=== PATIENT | female | born 1985 | race African-American/Black ===

== ENCOUNTER 2017-01-04 00:16 | Emergency (ER) | payer MEDICAID ==
[2017-01-04 00:49] VITALS: BP 123/76
== END 2017-01-04 04:26 | disposition left against medical advice (07) ==
LOC: ED 00:16
DX: Z53.21 Procedure and treatment not carried out due to patient leaving prior to being seen by health care provider (principal)

== ENCOUNTER 2017-01-04 11:08 | Emergency (ER) | payer MEDICAID ==
[2017-01-04 13:47] LABS: UA SPECIFIC GRAVITY 1.015 (1.005-1.035); microscopic required? YES; urine erythrocyte TRACE (NEGATIVE)
[2017-01-04 14:15] LABS: CALCIUM 9.4 mg/dL (8.5-10.1); CARBON DIOXIDE 23.9 mmol/L (21-32); CHLORIDE SERUM 105 mmol/L (98-107); CREATININE SERUM 0.9 mg/dL (0.6-1.0); GFR1 > 60 mL/min; GLUCOSE SERUM 86 mg/dL (74-106); POTASSIUM SERUM 4.2 mmol/L (3.5-5.1); SODIUM SERUM 138 mmol/L (136-145)
[2017-01-04 14:23] LABS: BASOPHIL % 0.6 % (0-2); PLATELET COUNT 321 x10^3mcL (130-400)
[2017-01-04 14:27] LABS: RED CELL DISTRIBUTION WIDTH 16.6 % (11.5-14.5)
[2017-01-04 15:33] VITALS: BP 114/72
== END 2017-01-04 16:10 | disposition home or self-care (01) ==
LOC: ED 11:08
PROVIDERS: Emergency Medicine
DX: N39.0 Urinary tract infection, site not specified (principal); D64.9 Anemia, unspecified; Z88.5 Allergy status to narcotic agent
CPT/HCPCS: 36415; J1885

== ENCOUNTER 2017-01-06 15:28 | Emergency (ER) | payer MEDICAID ==
[2017-01-06 19:05] VITALS: BP 119/77
== END 2017-01-06 19:05 | disposition home or self-care (01) ==
LOC: ED 15:28
DX: N39.0 Urinary tract infection, site not specified (principal); Z88.5 Allergy status to narcotic agent

== ENCOUNTER 2017-12-11 22:44 | Emergency (ER) | payer MEDICAID ==
[~2017-12-11] VITALS: Ht 162.6 cm; Wt 113.4 kg
[2017-12-11 23:04] VITALS: Ht 162.6 cm; Wt 113.4 kg
[2017-12-12 01:06] LABS: PLATELET COUNT 349 x10^3mcL (130-400)
[2017-12-12 01:07] LABS: CARBON DIOXIDE 26.4 mmol/L (21-32); CHLORIDE SERUM 107 mmol/L (98-107); CREATININE SERUM 0.8 mg/dL (0.6-1.0); GFR1 > 60 mL/min; GLUCOSE SERUM 90 mg/dL (74-106); POTASSIUM SERUM 4.4 mmol/L (3.5-5.1); RED CELL DISTRIBUTION WIDTH 16.7 % (11.5-14.5); SODIUM SERUM 141 mmol/L (136-145)
[2017-12-12 01:19] LABS: ALBUMIN 3.6 g/dL (3.4-5.0); ALKALINE PHOSPHATASE 87 U/L (46-116); ALT/SGPT 18 U/L (14-59); AST/SGOT 18 U/L (15-37); BILIRUBIN TOTAL 0.5 mg/dL (0.20-1.00); TOTAL PROTEIN, SERUM 7.9 g/dL (6.4-8.2)
[2017-12-12 01:54] LABS: microscopic required? NO
[2017-12-12 02:22] LABS: UA SPECIFIC GRAVITY >=1.030 (1.005-1.035); urine erythrocyte NEGATIVE (NEGATIVE)
[2017-12-12 05:10] VITALS: BP 120/57
== END 2017-12-12 05:10 | disposition home or self-care (01) ==
LOC: ED 22:44
PROVIDERS: Emergency Medicine
DX: M79.652 Pain in left thigh (principal); Z88.5 Allergy status to narcotic agent
CPT/HCPCS: J1885; J3010; Q0092

== ENCOUNTER 2017-12-13 13:35 | Emergency (ER) | payer MEDICAID ==
[~2017-12-13] VITALS: Ht 162.6 cm; Wt 111.1 kg
[2017-12-13 14:01] VITALS: Ht 162.6 cm; Wt 111.1 kg
[2017-12-13 15:18] LABS: BASOPHIL % 0.4 % (0-2); PLATELET COUNT 323 x10^3mcL (130-400)
[2017-12-13 15:19] LABS: RED CELL DISTRIBUTION WIDTH 16.5 % (11.5-14.5)
[2017-12-13 18:54] VITALS: BP 110/52
== END 2017-12-13 18:54 | disposition home or self-care (01) ==
LOC: ED 13:35
PROVIDERS: Emergency Medicine
DX: M48.061 Spinal stenosis, lumbar region without neurogenic claudication (principal); M54.16 Radiculopathy, lumbar region; F41.9 Anxiety disorder, unspecified; Z88.5 Allergy status to narcotic agent
CPT/HCPCS: 36415; J3010

== ENCOUNTER 2019-03-02 00:58 | Emergency (ER) | payer MEDICAID ==
[~2019-03-02] VITALS: Ht 162.6 cm; Wt 112.5 kg
[2019-03-02 01:07] VITALS: Ht 162.6 cm; Wt 112.5 kg
[2019-03-02 02:51] VITALS: BP 150/60
== END 2019-03-02 02:51 | disposition home or self-care (01) ==
LOC: ED 00:58
DX: S90.862A Insect bite (nonvenomous), left foot, initial encounter (principal); F41.9 Anxiety disorder, unspecified; Z88.5 Allergy status to narcotic agent; Z98.890 Other specified postprocedural states; W57.XXXA Bitten or stung by nonvenomous insect and other nonvenomous arthropods, initial encounter; Y93.89 Activity, other specified; Y92.89 Other specified places as the place of occurrence of the external cause; Y99.8 Other external cause status
CPT/HCPCS: J0696; J1885; Q0092

== ENCOUNTER 2019-03-07 21:33 | Emergency (ER) | payer MEDICAID ==
[~2019-03-07] VITALS: Ht 162.6 cm; Wt 226.8 kg
[2019-03-07 21:55] VITALS: Ht 162.6 cm; Wt 226.8 kg
[2019-03-07 23:48] LABS: BASOPHIL % 0.3 % (0-2); PLATELET COUNT 410 x10^3mcL (130-400); RED CELL DISTRIBUTION WIDTH 17.3 % (11.5-14.5)
[2019-03-08 00:22] LABS: CALCIUM 9.9 mg/dL (8.5-10.1); CARBON DIOXIDE 27.8 mmol/L (21-32); CHLORIDE SERUM 104 mmol/L (98-107); GFR1 > 60 mL/min; GLUCOSE SERUM 80 mg/dL (74-106); POTASSIUM SERUM 3.9 mmol/L (3.5-5.1); SODIUM SERUM 141 mmol/L (136-145)
[2019-03-08 00:25] LABS: ERYTHROCYTE SED RATE 29 mm/hr (0-20)
[2019-03-08 00:28] LABS: ALBUMIN 3.9 g/dL (3.4-5.0); ALKALINE PHOSPHATASE 95 U/L (46-116); ALT/SGPT 25 U/L (14-59); AST/SGOT 19 U/L (15-37); BILIRUBIN TOTAL 0.5 mg/dL (0.20-1.00); C REACTIVE PROTEIN 1.9 mg/dL (<=0.9); TOTAL PROTEIN, SERUM 8.3 g/dL (6.4-8.2)
[2019-03-08 02:51] VITALS: BP 128/67
== END 2019-03-08 02:51 | disposition home or self-care (01) ==
LOC: ED 21:33
PROVIDERS: Emergency Medicine
DX: L03.116 Cellulitis of left lower limb (principal); F41.9 Anxiety disorder, unspecified; Z88.5 Allergy status to narcotic agent
CPT/HCPCS: J1885; J2543; J3370; J7050

== ENCOUNTER 2019-06-15 00:48 | Emergency (ER) | payer MEDICAID ==
[~2019-06-15] VITALS: Ht 162.6 cm; Wt 117.0 kg
[2019-06-15 00:56] VITALS: Ht 162.6 cm; Wt 117.0 kg
[2019-06-15 02:47] VITALS: BP 125/89
== END 2019-06-15 02:47 | disposition home or self-care (01) ==
LOC: ED 00:48
DX: G44.209 Tension-type headache, unspecified, not intractable (principal); J06.9 Acute upper respiratory infection, unspecified; Z88.5 Allergy status to narcotic agent; Z98.890 Other specified postprocedural states

== ENCOUNTER 2019-06-18 08:05 | Emergency (ER) | payer MEDICAID ==
[~2019-06-18] VITALS: Ht 162.6 cm; Wt 112.9 kg
[2019-06-18 08:15] VITALS: Ht 162.6 cm; Wt 112.9 kg
[2019-06-18 08:57] LABS: BASOPHIL % 1.2 % (0-2); PLATELET COUNT 328 x10^3mcL (130-400); RED CELL DISTRIBUTION WIDTH 21.5 % (11.5-14.5); rbc morphology (normal/abnorm) ABNORMAL (NORMAL)
[2019-06-18 11:31] LABS: microscopic required? YES; urine erythrocyte 3+ (NEGATIVE)
[2019-06-18 12:52] VITALS: BP 132/82
== END 2019-06-18 12:54 | disposition home or self-care (01) ==
LOC: ED 08:05
PROVIDERS: Emergency Medicine
DX: O34.11 Maternal care for benign tumor of corpus uteri, first trimester (principal); Z3A.13 13 weeks gestation of pregnancy; Z88.5 Allergy status to narcotic agent; Z98.890 Other specified postprocedural states
CPT/HCPCS: 36415; J1460

== ENCOUNTER 2019-07-05 08:00 | Emergency (ER) | payer MEDICAID ==
[~2019-07-05] VITALS: Ht 162.6 cm; Wt 115.7 kg
[2019-07-05 08:09] VITALS: Ht 162.6 cm; Wt 115.7 kg
[2019-07-05 11:25] VITALS: BP 150/75
== END 2019-07-05 11:25 | disposition home or self-care (01) ==
LOC: ED 08:00
DX: O99.611 Diseases of the digestive system complicating pregnancy, first trimester (principal); K59.00 Constipation, unspecified; Z3A.14 14 weeks gestation of pregnancy; Z88.5 Allergy status to narcotic agent; Z98.890 Other specified postprocedural states